=== PATIENT | male | born 1970 | race Caucasian/White ===

== ENCOUNTER 2016-12-23 01:33 | Emergency (ER) | payer OTHER ==
[~2016-12-23] VITALS: Ht 193 cm; Wt 127.0 kg
[2016-12-23 01:40] VITALS: BP 153/97; PULSE 75; RESP 18; O2SAT 99
[2016-12-23] MEDS ORDERED: HYDROmorphone 1 mg/mL Inj ONE (01:55)
[2016-12-23] MEDS ORDERED: HYDROmorphone 1 mg/mL Inj IM ONE (02:00)
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
[2016-12-23] MEDS ORDERED: Lidocaine 2% 5 mL Topical Jelly TOPICAL ONE (02:35)
[2016-12-23] MEDS ORDERED: _HYDROcodone/APAP 5-325 mg Tablet PO PRN (04:00)
[2016-12-23 04:31] VITALS: PULSE 78; RESP 16; O2SAT 100
== END 2016-12-23 04:32 | disposition home or self-care (01) ==
LOC: SED 01:33
DX: T24.221A Burn of second degree of right knee, initial encounter (principal); T31.0 Burns involving less than 10% of body surface; X04.XXXA Exposure to ignition of highly flammable material, initial encounter; Y93.89 Activity, other specified; Y92.89 Other specified places as the place of occurrence of the external cause; Y99.8 Other external cause status; I10 Essential (primary) hypertension
CPT/HCPCS: 96372; 99284; J1170; J1885

== ENCOUNTER 2017-01-27 17:40 | Emergency (ER) | payer OTHER ==
[~2017-01-27] VITALS: Ht 193 cm; Wt 125.0 kg
[2017-01-27 17:46] VITALS: BP 149/92; PULSE 67; RESP 16; O2SAT 98
[2017-01-27 18:33] LABS: BASOPHILS % (AUTO) 0.6 % (0-3); EOSINOPHILS % (AUTO) 2.7 % (0-5); MONOCYTES % (AUTO) 8.5 % (4-12); Mean Corpuscular Hemoglobin 26.6 pg (27.0-35.0); Mean Corpuscular Volume 78.1 fL (81-100); NEUTROPHILS % (AUTO) 58.4 % (40-74); Platelet Count 258 bil/L (150-400)
--- NOTE | 2017-01-27 20:15 | ED.REPORT ---
HPI-GI Bleed Date of Service Jan 27, 2017 ED Provider: Dr. Black Maldonado MD A 46 year old male with a history of hypertension presents to the ED following one episode of hematochezia that first began earlier this evening. Patient reportedly wiped following a normal BM and noticed significant amounts of blood on the toilet paper. He denies history of GI bleeds or diverticulosis. He denies any pain associated with the bleeding. Nursing Notes Stated Complaint: VERY BLOODY STOOL Chief Complaint: Male Abdominal Pain Nursing Notes Reviewed: Yes Allergies: Uncoded Allergies: UNKNOWN ANTIBIOTIC (Allergy, Unknown, 12/23/16) either sulfa or clindamycin- not sure General Time Seen by Provider: 20:15 Chief Complaint Chief Complaint: Stool blood streaked Hx Obtained From: Patient Arrived By: Walk-in Onset Occurred: 5 - 8 hours ago Symptom Duration: Since onset Progression Since Onset: Gradually improving Associated with: Denies: Abdominal pain Pertinent Negative: Pt denies other symptoms Recent Healthcare: No recent doctor visit, No recent hospitalization Past Medical History Past Medical History Reports: Hypertension Past Surgical History None reported. Family History Denies any pertinent history Smoking History Never Smoker Social History Alcohol Use: Denies alcohol use Drug Use: Denies drug use Other Social History: Good social support, Local resident Ambulatory Status Independent Review of Systems GI: Reports: Hematochezia, Denies: Abdominal pain, Bloody/tarry stool, Melena, Rectal pain Complete sys rev & neg: except as marked. Physical Exam Initial Vital Signs Vital Signs (First) Date Time Temp Pulse Resp B/P Pulse Ox O2 Delivery O2 Flow Rate FiO2 01/27/17 17:46 36.8 67 16 149/92 98 Room Air Initial VS: Reviewed Head / Eyes: Atraumatic, Normocephalic, PERRL Neck: Supple, Non-tender, Full range of motion Extremities: Vascular intact, Neuro intact, No swelling, No tenderness Skin: Warm, Dry, No cyanosis Neurologic: Alert, Oriented, Nonfocal Psychiatric: Mood/affect normal, Behavior normal, Normal thought content General/Constitutional: Awake, Alert, No acute distress, Well appearing, Well developed Respiratory / Chest: Atraumatic, Breath sounds NL, Breath sounds = bilat, No respiratory distress Cardiovascular: Heart rate NL, Regular rhythm, Heart sounds NL Abdomen: Atraumatic, Soft, Non-tender Interpretation & Diagnostics Lab Results Interpretation Result Diagram: 01/27/170 01/27/17 1820 Test 01/27/17 18:20 01/27/17 22:30 White Blood Count 8.6th/mm3 (3.8-10.1) Red Blood Count 5.26mil/mm3 (4.40-5.80) Mean Corpuscular Volume 78.1fL (81-100) Mean Corpuscular Hemoglobin 26.6pg (27.0-35.0) Mean Corpuscular Hemoglobin Concent 34.1% (32.0-37.0) Red Cell Distribution Width 12.7% (12.3-15.4) Platelet Count 258bil/L (150-400) Neutrophils (%) (Auto) 58.4% (40-74) Lymphocytes (%) (Auto) 29.5% (14-46) Monocytes (%) (Auto) 8.5% (4-12) Eosinophils (%) (Auto) 2.7% (0-5) Basophils (%) (Auto) 0.6% (0-3) Prothrombin Time 11.1sec (8.1-12.5) Prothromb Time International Ratio 1.04ratio Sodium Level 138mEq/L (134-144) Potassium Level 4.3mEq/L (3.5-5.2) Chloride Level 100mEq/L (97-108) Carbon Dioxide Level 24mmol/L (18-29) Blood Urea Nitrogen 17mg/dL (6-24) Creatinine 0.65mg/dL (0.76-1.27) Estimat Glomerular Filtration Rate 141mL/min (>59) Glucose Level 102mg/dL (60-99) Calcium Level 10.1mg/dL (8.5-10.1) Total Bilirubin 0.8mg/dL (0.0-1.2) Aspartate Amino Transf (AST/SGOT) 27U/L (0-50) Alanine Aminotransferase (ALT/SGPT) 28U/L (0-44) Alkaline Phosphatase 90U/L (25-150) Total Protein 7.9g/dL (6.4-8.4) Albumin 4.2g/dL (3.4-5.0) Hold [place] Top Tube Received (Received) Hemoglobin 13.7g/dL (13.8-17.2) Hematocrit 40.5% (41.0-50.0) Re-Eval/Medical Decision Med Decision/Clinical Course Mark was observed for 4+ hours. He had a bowel movement that was heme- negative. No further bleeding. H&H stable. He does not wish to be admitted and I am not sure there is no indication for admission either way. He will follow up with gastroenterology. He will come back if he has any further bleeding. Re-Evaluation/Progress : Time of Eval: 22:40 Patient Status: Condition improved Re-Evaluation/Progress Note: No further bleeding. He is informed of his results and diagnosis. All questions about the intended treatment plan are addressed. Counseled Regarding: Diagnosis, Lab results, Need for follow-up, When/why to return to ED Discharge & Departure Impression: Primary Impression: GI hemorrhage GI bleed type/associated pathology: unspecified gastrointestinal hemorrhage type Qualified Code: K92.2 - Gastrointestinal hemorrhage, unspecified Disposition: Home Discharge Condition All VS Reviewed: Yes Condition: Improved Patient Instructions: Gastrointestinal Bleeding (ED) Additional Instructions: Thank you for trusting us with your care this evening. Your emergency department results are reassuring that there is no dangerous cause for concern at this time. Your blood count is stable. A clear cause of your symptoms was not identified so I recommend that you schedule a follow up appointment with the referred GI specialist, Dr. Winters on Friday for a colonoscopy. Please return to the emergency department if you begin to develop any new or worsening conditions including any blood in your stool, high fevers, chills, nausea, vomiting, or severe abdominal pain. Referrals: Connor Gallardo MD (PCP) Jessee Winters MD Attestation Portions of this note were transcribed by Ford Lester. I, Dr. Maldonado personally performed the history, physical exam and medical decision-making; I reviewed and confirmed the accuracy of the information in the transcribed note. Signed by: Feroz Iqbal, 01/27/17 [id number]. copies to: Connor Gallardo MD, Todd P DO Jan 27, 2017 20:15 FORD LESTER Jan 27, 2017 20:22
[2017-01-27 20:39] LABS: INR 1.04 ratio
[2017-01-27 23:04] VITALS: BP 122/78; PULSE 78; RESP 16; O2SAT 99
== END 2017-01-27 23:06 | disposition home or self-care (01) ==
LOC: SED 17:40
DX: K92.2 Gastrointestinal hemorrhage, unspecified (principal); I10 Essential (primary) hypertension